=== PATIENT | male | born 1970 | race Caucasian/White ===

== ENCOUNTER 2022-07-08 13:06 | Outpatient (CLI) | payer BC, SELFPAY ==
[2022-07-09 15:23] LABS: Chloride* 105 mmol/L (96-114); Potassium* 4.3 mmol/L (3.6-5.1); Sodium* 139 mmol/L (135-149)
[2022-07-09 15:26] LABS: Blood Urea Nitrogen* 18 mg/dL (7-30); Calcium* 9.2 mg/dL (8.4-10.6); Carbon Dioxide* 27 mmol/L (20-32); Creatinine* 0.6 mg/dL (0.5-1.5); Estimated Glomerular Filt Rate 115 ml/min; Glucose* 90 mg/dL (60-115)
== END 2022-07-08 13:07 | disposition home or self-care (01) ==
PROVIDERS: PCP Family Medicine; Visit Provider Family Medicine
DX: I10 Essential (primary) hypertension (principal); Z12.5 Encounter for screening for malignant neoplasm of prostate
CPT/HCPCS: 80048; 84153

== ENCOUNTER 2023-04-24 14:07 | Outpatient (CLI) | payer BC, SELFPAY | END 2023-04-24 14:08 | disposition home or self-care (01) | PROVIDERS: PCP Family Medicine; Visit Provider Family Medicine | DX: Z00.00 Encounter for general adult medical examination without abnormal findings (principal); I10 Essential (primary) hypertension; M79.643 Pain in unspecified hand; G47.33 Obstructive sleep apnea (adult) (pediatric); Z13.6 Encounter for screening for cardiovascular disorders; Z12.5 Encounter for screening for malignant neoplasm of prostate | CPT/HCPCS: 80048; 80061; 84153; 86200; 86431 ==

== ENCOUNTER 2023-04-30 10:46 | Outpatient (CLI) | payer BC, SELFPAY ==
--- NOTE | 2023-04-30 11:21 | P.STN_ITS ---
Stress Test Note Date Date Seen: 04/30/23 Date of test: 04/30/23 Providers Primary care provider: Ihsan Hernández Stress test physician: Latricia Price Stress Test Note Stress test ordered: Exercise Stress Test Indication for test: Hypertension Results discussion: Resting EKG: Sinus rhythm, 62 beats per minute. Small amount of artifact. No concerning baseline change on this EKG. Resting blood pressure: 102/72 Stress test: Patient did reportedly take his 12.5 mg of metoprolol this morning, has been on it reportedly 6 days now. We did discuss that the beta- guy can suppress heart rate but with this small dose, do think we should proceed and attempt to do the stress test today, patient does agree. Patient exercised on the treadmill using a standard [employer]fon[employer] protocol. Patient was able to exercise 9 minutes 32 seconds, stopping due to maximum exercise capacity, calves were uncomfortable/painful with the incline and shortness of breath at this level of activity. This was equivalent to 11.1 Mets. He did reach a maximum heart rate of 143 beats per minute which was 101% of a maximally calculated target heart rate of 141. During exercise he had a maximum blood pressure of 159/90 rate pressure product was 23,800. Immediately at the termination of exercise, blood pressure was checked in he was 200/70, was recovering from the stress test. No chest symptoms. He had no arrhythmia, no EKG evidence of any ischemic change. Patient recovered nicely, discharged to home in stable condition. Impression: Subjectively negative, objectively negative treadmill stress test. Follow up suggested: He will follow up with his primary provider. We did review the hypertensive response to exercise, he should continue working on his blood pressure management with his primary care provider, patient notes that his blood pressure has been elevated recently.
[2023-04-30 11:25] VITALS: BP 124/74; PULSE 76; RESP 16
== END 2023-04-30 11:28 | disposition home or self-care (01) ==
LOC: STRESS 10:47
PROVIDERS: PCP Family Medicine; Visit Provider Family Medicine
DX: I10 Essential (primary) hypertension (principal); G47.33 Obstructive sleep apnea (adult) (pediatric); I25.10 Atherosclerotic heart disease of native coronary artery without angina pectoris; Z99.89 Dependence on other enabling machines and devices
CPT/HCPCS: 93016; 93017

== ENCOUNTER 2024-07-06 10:35 | Outpatient (CLI) | payer BC, SELFPAY | END 2024-07-06 10:36 | disposition home or self-care (01) | PROVIDERS: PCP Family Medicine; Visit Provider Family Medicine | DX: E78.5 Hyperlipidemia, unspecified (principal); I10 Essential (primary) hypertension; Z12.5 Encounter for screening for malignant neoplasm of prostate | CPT/HCPCS: 80053; 80061; G0103 ==

== ENCOUNTER 2025-08-08 10:55 | Outpatient (CLI) | payer BC, SELFPAY | END 2025-08-08 10:56 | disposition home or self-care (01) | PROVIDERS: PCP Family Medicine; Visit Provider Family Medicine | DX: Z00.00 Encounter for general adult medical examination without abnormal findings (principal); I10 Essential (primary) hypertension; E78.2 Mixed hyperlipidemia | CPT/HCPCS: 80048; 80061 ==